=== PATIENT | female | born 1945 | race Caucasian/White ===

== ENCOUNTER 2022-04-23 17:10 | Inpatient (IN) | payer MEDICARE ==
[~2022-04-23 17:10] MED LIST: Iopamidol-370 76% 500 ML 1 ML ONE
[2022-04-23 18:11] LABS: #Eosinphils 0.5 thou/uL (0.0-0.7); #Lymphocytes 1.7 thou/uL (1.20-3.40); #Monocytes 1.4 thou/uL (0.11-0.59); #Neutrophils 8.3 thou/uL (1.40-6.50); %Eosinophils 3.9 % (0.0-10.0); %Lymphocytes 14.5 % (21.0-51.0); %Monocytes 11.7 % (0.0-10.0); %Neutrophils 69.8 % (42.0-75.0); Hemoglobin 11.7 g/dL (12.0-16.0); Mean Corpuscular HGB CONC 33.9 g/dL (32.0-36.0); Mean Corpuscular Volume 91.7 fl (78.0-98.0); Mean Platelet Volume 6.8 fL (7.4-10.4); Platelet Count 495 10x3/uL (130-400); RBC Distribution Width 16.3 % (11.5-14.5); Red Blood Cell (RBC) Count 3.77 mill/uL (4.20-5.40); White Blood Cell (WBC) Count 11.8 10x3/uL (4.8-10.8)
[2022-04-23 18:32] LABS: ALT (SGPT) 16 U/L (8-55); AST (SGOT) 35 U/L (5-34); Albumin 4.1 g/dL (3.4-4.8); Alkaline Phosphatase 61 U/L (40-110); Anion Gap 16 mmol/L (10-20); BUN (Urea Nitrogen) 16 mg/dL (9.8-20.1); Bilirubin, Total 0.8 mg/dL (0.2-1.2); Calc. Creatinine Clearance 0 mL/min (70-130); Calcium 9.8 mg/dL (7.8-10.44); Carbon Dioxide 22 mmol/L (23-31); Chloride 102 mmol/L (98-107); Estimated GFR 50; Globulin 2.6 g/dL (2.4-3.5); Glucose 127 mg/dL (83-110); Potassium 5.1 mmol/L (3.5-5.1); Protein, Total 6.7 g/dL (5.8-8.1); Sodium 135 mmol/L (136-145)
[2022-04-23 21:05] LABS: Bilirubin Negative (Negative); Blood, Urine Negative (Negative); Clarity Clear (Clear); Glucose, Urine (Dipstick) Normal (Negative); Ketone, Urine Negative (Negative); Leukocyte 75 Leu/uL (Negative); Nitrite Negative (Negative); Protein, Urine (Dipstick) Negative (Neg-Trace); RBC/HPF 0-3 HPF (0-3); Specific Gravity, Urine 1.014 (1.002-1.036); Squamous Epithelial 0-3 HPF (0-3); Urobilinogen Normal mg/dL (Less than 2); pH, Urine 6.5 (5.0-9.0)
[2022-04-23] MEDS ORDERED: Azithromycin 250 MG TAB ONE (21:07)
[2022-04-23] MEDS ORDERED: cefTRIAXone\\ROCEPHIN 1 GM VIAL ONE (21:07)
[2022-04-23 21:10] LABS: Bacteria/HPF Rare-Few HPF (None Seen)
[2022-04-23 22:09] LABS: SARS-CoV-2 NAA Rapid Test Not Detected (NotDetected)
[2022-04-23] MEDS ORDERED: Enoxaparin Sodium 80 MG/0.8 ML SYRINGE ONE (22:35)
[2022-04-24] MEDS ORDERED: Ondansetron PF 4 MG/2 ML Vial IVP PRN (03:31)
[2022-04-24] MEDS ORDERED: Acetaminophen 325 MG TAB PO PRN (03:31)
[2022-04-24] MEDS ORDERED: Sodium Chloride 0.9% 1,000 ML IV SCH (04:15)
[2022-04-24 07:28] LABS: #Eosinphils 0.6 thou/uL (0.0-0.7); #Lymphocytes 1.7 thou/uL (1.20-3.40); #Monocytes 1.1 thou/uL (0.11-0.59); #Neutrophils 5.2 thou/uL (1.40-6.50); %Basophils 0.2 % (0.0-1.0); %Eosinophils 6.6 % (0.0-10.0); %Lymphocytes 20.1 % (21.0-51.0); %Neutrophils 60.1 % (42.0-75.0); Hemoglobin 9.9 g/dL (12.0-16.0); Mean Corpuscular Volume 91.1 fl (78.0-98.0); Mean Platelet Volume 6.8 fL (7.4-10.4); Platelet Count 472 10x3/uL (130-400); RBC Distribution Width 16.2 % (11.5-14.5); White Blood Cell (WBC) Count 8.6 10x3/uL (4.8-10.8)
[2022-04-24 07:52] VITALS: BMI 25.7
[2022-04-24 07:52] LABS: Anion Gap 13 mmol/L (10-20); BUN (Urea Nitrogen) 14 mg/dL (9.8-20.1); Calc. Creatinine Clearance 0 mL/min (70-130); Calcium 8.8 mg/dL (7.8-10.44); Carbon Dioxide 21 mmol/L (23-31); Chloride 106 mmol/L (98-107); Estimated GFR 59; Glucose 100 mg/dL (83-110); Potassium 4.3 mmol/L (3.5-5.1); Sodium 136 mmol/L (136-145)
[2022-04-24] MEDS: Apixaban 5 MG TAB PO SCH ×2 (09:27→21:10)
[2022-04-24] MEDS ORDERED: Gabapentin 300 MG CAP PO SCH (11:30)
[2022-04-24 12:02] LABS: Legionella Urinary Ag Negative (Negative); Strep pneumo Urine Ag NEGATIVE (NEGATIVE)
[2022-04-24] MEDS: Gabapentin 300 MG CAP PO SCH ×2 (14:43→21:10)
[2022-04-24] MEDS ORDERED: Valsartan 80 MG TAB PO SCH (21:00)
[2022-04-24] MEDS ORDERED: cefTRIAXone\\ROCEPHIN 1 GM in Sodium Chloride 0.9% 100 ML IVPB SCH (21:00)
[2022-04-24] MEDS ORDERED: Azithromycin 500 MG in Sodium Chloride 0.9% 250 ML 250 ML IVPB SCH (21:00)
[2022-04-24] MEDS: rOPINIRole HCl 0.5 MG TAB PO SCH (21:10)
[2022-04-24] MEDS: Valsartan 80 MG TAB PO SCH (21:10)
[2022-04-25] MEDS ORDERED: Sodium Chloride 0.9% 500 ML IV SCH (00:45)
[2022-04-25 05:13] LABS: #Eosinphils 0.7 thou/uL (0.0-0.7); #Monocytes 1.3 thou/uL (0.11-0.59); #Neutrophils 4.9 thou/uL (1.40-6.50); %Basophils 0.1 % (0.0-1.0); %Eosinophils 7.5 % (0.0-10.0); %Lymphocytes 22.7 % (21.0-51.0); %Monocytes 14.9 % (0.0-10.0); %Neutrophils 54.7 % (42.0-75.0); Hemoglobin 9.6 g/dL (12.0-16.0); Mean Corpuscular HGB CONC 32.5 g/dL (32.0-36.0); Mean Corpuscular Hemoglobin 30.4 pg (27.0-31.0); Mean Corpuscular Volume 93.4 fl (78.0-98.0); Mean Platelet Volume 6.6 fL (7.4-10.4); Platelet Count 511 10x3/uL (130-400); RBC Distribution Width 16.6 % (11.5-14.5); Red Blood Cell (RBC) Count 3.15 mill/uL (4.20-5.40); White Blood Cell (WBC) Count 8.9 10x3/uL (4.8-10.8)
[2022-04-25 05:31] LABS: Anion Gap 12 mmol/L (10-20); BUN (Urea Nitrogen) 13 mg/dL (9.8-20.1); Calc. Creatinine Clearance 54 mL/min (70-130); Calcium 8.5 mg/dL (7.8-10.44); Carbon Dioxide 21 mmol/L (23-31); Chloride 108 mmol/L (98-107); Estimated GFR 56; Glucose 92 mg/dL (83-110); Potassium 4.1 mmol/L (3.5-5.1); Sodium 137 mmol/L (136-145)
[2022-04-25] MEDS: Apixaban 5 MG TAB PO SCH ×2 (08:26→20:16)
[2022-04-25] MEDS: Furosemide 40 MG TAB PO SCH (08:26)
[2022-04-25] MEDS: Spironolactone 25 MG TAB PO SCH (08:26)
[2022-04-25] MEDS: Fenofibrate 48 MG TAB PO SCH (08:27)
[2022-04-25] MEDS: Gabapentin 300 MG CAP PO SCH ×3 (08:28→20:16)
[2022-04-25] MEDS: Valsartan 80 MG TAB PO SCH (08:39)
[2022-04-25] MEDS ORDERED: Valsartan 80 MG TAB PO SCH (11:54)
[2022-04-25] MEDS ORDERED: Methotrexate Sodium 2.5 MG TAB PO SCH (14:00)
[2022-04-25] MEDS: rOPINIRole HCl 0.5 MG TAB PO SCH (20:16)
[2022-04-26 04:50] LABS: #Eosinphils 0.7 thou/uL (0.0-0.7); #Lymphocytes 2.1 thou/uL (1.20-3.40); #Monocytes 1.4 thou/uL (0.11-0.59); #Neutrophils 5.9 thou/uL (1.40-6.50); %Basophils 0.3 % (0.0-1.0); %Eosinophils 7.1 % (0.0-10.0); %Lymphocytes 20.4 % (21.0-51.0); %Monocytes 14.1 % (0.0-10.0); Hemoglobin 9.9 g/dL (12.0-16.0); Mean Corpuscular HGB CONC 32.8 g/dL (32.0-36.0); Mean Corpuscular Hemoglobin 30.3 pg (27.0-31.0); Mean Corpuscular Volume 92.3 fl (78.0-98.0); Mean Platelet Volume 6.7 fL (7.4-10.4); Platelet Count 553 10x3/uL (130-400); RBC Distribution Width 16.3 % (11.5-14.5); Red Blood Cell (RBC) Count 3.25 mill/uL (4.20-5.40); White Blood Cell (WBC) Count 10.2 10x3/uL (4.8-10.8)
[2022-04-26 05:32] LABS: Chloride 103 mmol/L (98-107); Potassium 4.3 mmol/L (3.5-5.1); Sodium 134 mmol/L (136-145)
[2022-04-26 05:33] LABS: Calcium 8.7 mg/dL (7.8-10.44); Glucose 87 mg/dL (83-110)
[2022-04-26 05:34] LABS: Anion Gap 15 mmol/L (10-20); Carbon Dioxide 20 mmol/L (23-31)
[2022-04-26 05:36] LABS: Calc. Creatinine Clearance 47 mL/min (70-130); Estimated GFR 47
[2022-04-26 05:37] LABS: BUN (Urea Nitrogen) 18 mg/dL (9.8-20.1)
[2022-04-26] MEDS: Gabapentin 300 MG CAP PO SCH (07:42)
[2022-04-26] MEDS: Fenofibrate 48 MG TAB PO SCH (07:42)
[2022-04-26] MEDS: Spironolactone 25 MG TAB PO SCH (07:43)
[2022-04-26] MEDS: Furosemide 40 MG TAB PO SCH (07:44)
[2022-04-26] MEDS: Apixaban 5 MG TAB PO SCH (07:44)
[2022-04-26] MEDS ORDERED: Metoprolol Tartrate 25 MG TAB PO SCH (09:00)
[2022-04-26] MEDS ORDERED: Furosemide 20 MG/2 ML VIAL SLOW IVP SCH (09:15)
[2022-04-26 12:42] VITALS: BP 88/53; TEMP 98
[2022-05-01] MEDS ORDERED: cloNIDine 0.3mg/24 Hour PATCH TD SCH ×2 (09:00)
[2022-05-01] MEDS ORDERED: Apixaban 5 MG TAB PO SCH (21:00)
== END 2022-04-26 14:47 | disposition home health service (06) | DRG 175 ==
LOC: ERS 17:10 → ERHOLD 22:47 → 2SW 04-24 07:48 → OBSVTOIN 04-24 15:15
PROVIDERS: ADMIT Internal Medicine; ATTEND Family Medicine
DX: I26.99 Other pulmonary embolism without acute cor pulmonale (principal); J18.9 Pneumonia, unspecified organism; J96.01 Acute respiratory failure with hypoxia; I82.432 Acute embolism and thrombosis of left popliteal vein; I82.442 Acute embolism and thrombosis of left tibial vein; N17.9 Acute kidney failure, unspecified; J81.1 Chronic pulmonary edema; I10 Essential (primary) hypertension; M06.9 Rheumatoid arthritis, unspecified; G62.9 Polyneuropathy, unspecified; Z96.653 Presence of artificial knee joint, bilateral; Z20.822 Contact with and (suspected) exposure to COVID-19; R91.1 Solitary pulmonary nodule; I48.0 Paroxysmal atrial fibrillation; Z79.01 Long term (current) use of anticoagulants; Z79.899 Other long term (current) drug therapy
CPT/HCPCS: 36415; 71045; 71275; 80048; 80053; 81003; 81015; 83605; 83880; 84484; 85025; 87040; 87449; 87633; 87899; 93005; 93306; 93970; 96372; 96374; J0456; J0696; J1650; J1940; J3490; J7030; J7050; J8610; Q9967; U0003; U0005

== ENCOUNTER 2022-06-25 07:13 | Inpatient (IN) | payer MEDICARE ==
[2022-06-25 08:18] LABS: #Eosinphils 0.7 thou/uL (0.0-0.7); #Lymphocytes 1.2 thou/uL (1.20-3.40); #Monocytes 0.6 thou/uL (0.11-0.59); #Neutrophils 2.4 thou/uL (1.40-6.50); %Basophils 0.3 % (0.0-1.0); %Eosinophils 13.5 % (0.0-10.0); %Monocytes 12.7 % (0.0-10.0); %Neutrophils 48.5 % (42.0-75.0); Mean Corpuscular Hemoglobin 32.5 pg (27.0-31.0); Mean Corpuscular Volume 98.3 fl (78.0-98.0); Mean Platelet Volume 6.1 fL (7.4-10.4); Platelet Count 326 10x3/uL (130-400); RBC Distribution Width 18.9 % (11.5-14.5); Red Blood Cell (RBC) Count 2.46 mill/uL (4.20-5.40); White Blood Cell (WBC) Count 4.9 10x3/uL (4.8-10.8)
[2022-06-25] MEDS ORDERED: Iopamidol-370 76% 500 ML 1 ML ONE (08:35)
[2022-06-25 08:38] LABS: ALT (SGPT) 23 U/L (8-55); AST (SGOT) 37 U/L (5-34); Albumin 3.6 g/dL (3.4-4.8); Alkaline Phosphatase 51 U/L (40-110); Anion Gap 12 mmol/L (10-20); BUN (Urea Nitrogen) 9 mg/dL (9.8-20.1); Bilirubin, Total 0.6 mg/dL (0.2-1.2); Calc. Creatinine Clearance 0 mL/min (70-130); Calcium 8.8 mg/dL (7.8-10.44); Carbon Dioxide 18 mmol/L (23-31); Chloride 114 mmol/L (98-107); Estimated GFR 69; Globulin 2.2 g/dL (2.4-3.5); Glucose 82 mg/dL (83-110); Potassium 3.4 mmol/L (3.5-5.1); Protein, Total 5.8 g/dL (5.8-8.1); Sodium 141 mmol/L (136-145)
[2022-06-25] MEDS ORDERED: cefTRIAXone\\ROCEPHIN 2 GM VIAL ONE (10:56)
[2022-06-25] MEDS ORDERED: Ondansetron PF 4 MG/2 ML Vial IVP PRN (11:23)
[2022-06-25] MEDS ORDERED: Senokot S 8.6-50 MG TAB PO PRN (11:23)
[2022-06-25] MEDS ORDERED: Ondansetron ODT 4 MG TAB PO PRN (11:23)
[2022-06-25] MEDS ORDERED: Calcium Carbonate 500 MG ChewTAB PO PRN (11:23)
[2022-06-25] MEDS ORDERED: Azithromycin 500 MG VIAL ONE (11:40)
[2022-06-25] MEDS ORDERED: Morphine 4 MG/ML VIAL ONE (11:49)
[2022-06-25] MEDS ORDERED: Ondansetron PF 4 MG/2 ML Vial ONE (11:49)
[2022-06-25] MEDS ORDERED: Furosemide 40 MG/4 ML VIAL ONE (13:42)
[2022-06-25] MEDS: Furosemide 40 MG/4 ML VIAL SLOW IVP SCH (13:54)
[2022-06-25] MEDS: Gabapentin 300 MG CAP PO SCH ×2 (15:25→21:24)
[2022-06-25] MEDS ORDERED: Potassium Chloride 20 MEQ TAB PO SCH (16:00)
[2022-06-25 17:04] LABS: SARS-CoV-2 NAA Rapid Test Not Detected (NotDetected)
[2022-06-25] MEDS ORDERED: rOPINIRole HCl 0.5 MG TAB PO SCH (21:00)
[2022-06-25] MEDS: Acetaminophen 325 MG TAB PO PRN (21:24)
[2022-06-25] MEDS: Apixaban 5 MG TAB PO SCH (21:24)
[2022-06-25] MEDS: Metoprolol Tartrate 25 MG TAB PO SCH (21:25)
[2022-06-25] MEDS ORDERED: Fenofibrate 48 MG TAB PO SCH (22:00)
[2022-06-26] MEDS: traMADol HCl 50 MG TAB PO PRN ×2 (03:13→14:02)
[2022-06-26 04:57] LABS: Hemoglobin 7.2 g/dL (12.0-16.0); Mean Corpuscular HGB CONC 32.6 g/dL (32.0-36.0); Mean Corpuscular Hemoglobin 32.2 pg (27.0-31.0); Mean Corpuscular Volume 98.6 fl (78.0-98.0); Mean Platelet Volume 6.6 fL (7.4-10.4); Platelet Count 286 10x3/uL (130-400); RBC Distribution Width 18.5 % (11.5-14.5); Red Blood Cell (RBC) Count 2.23 mill/uL (4.20-5.40); White Blood Cell (WBC) Count 5.6 10x3/uL (4.8-10.8)
[2022-06-26 05:21] LABS: ALT (SGPT) 21 U/L (8-55); AST (SGOT) 35 U/L (5-34); Albumin 3.4 g/dL (3.4-4.8); Alkaline Phosphatase 52 U/L (40-110); Anion Gap 10 mmol/L (10-20); BUN (Urea Nitrogen) 10 mg/dL (9.8-20.1); Bilirubin, Total 0.5 mg/dL (0.2-1.2); Calc. Creatinine Clearance 51 mL/min (70-130); Calcium 8.6 mg/dL (7.8-10.44); Carbon Dioxide 22 mmol/L (23-31); Chloride 110 mmol/L (98-107); Estimated GFR 53; Globulin 2.1 g/dL (2.4-3.5); Glucose 93 mg/dL (83-110); Magnesium 1.7 mg/dL (1.6-2.6); Potassium 3.3 mmol/L (3.5-5.1); Protein, Total 5.5 g/dL (5.8-8.1); Sodium 139 mmol/L (136-145)
[2022-06-26 05:24] LABS: Eosinophils 18 % (0-10); Lymphocytes 22 % (21-51); MDiff Complete? YES; Monocytes 11 % (0-10); Neutrophil 49 % (42-75)
[2022-06-26] MEDS: Furosemide 40 MG/4 ML VIAL SLOW IVP SCH ×2 (05:44→14:02)
[2022-06-26] MEDS: Acetaminophen 325 MG TAB PO PRN ×2 (05:44→20:14)
[2022-06-26] MEDS ORDERED: Fenofibrate 48 MG TAB PO SCH (09:00)
[2022-06-26] MEDS: Spironolactone 25 MG TAB PO SCH (09:22)
[2022-06-26] MEDS: Gabapentin 300 MG CAP PO SCH ×3 (09:22→20:15)
[2022-06-26] MEDS: Metoprolol Tartrate 25 MG TAB PO SCH ×3 (09:23→22:34)
[2022-06-26] MEDS: Apixaban 5 MG TAB PO SCH (09:23)
[2022-06-26] MEDS: Potassium Chloride 20 MEQ TAB PO SCH ×2 (11:08→14:03)
[2022-06-26] MEDS: rOPINIRole HCl 0.5 MG TAB PO SCH ×2 (14:03→20:15)
[2022-06-26 14:10] LABS: Hemoglobin 8.2 g/dL (12.0-16.0)
[2022-06-26] MEDS ORDERED: Pantoprazole 40 MG VIAL IVP SCH (14:15)
[2022-06-26] MEDS: Pantoprazole 40 MG VIAL IVP SCH (17:01)
[2022-06-26] MEDS: Fenofibrate 48 MG TAB PO SCH (20:15)
[2022-06-26] MEDS ORDERED: Magnesium 2 GM/50 ML(in water) 2 GM in Premix Bag 1 BAG IVPB SCH (22:30)
[2022-06-27] MEDS: traMADol HCl 50 MG TAB PO PRN ×3 (04:04→23:46)
[2022-06-27 05:02] LABS: #Eosinphils 0.8 thou/uL (0.0-0.7); #Lymphocytes 1.9 thou/uL (1.20-3.40); #Monocytes 0.4 thou/uL (0.11-0.59); #Neutrophils 3.8 thou/uL (1.40-6.50); %Basophils 0.2 % (0.0-1.0); %Lymphocytes 27.1 % (21.0-51.0); %Monocytes 5.7 % (0.0-10.0); %Neutrophils 55.1 % (42.0-75.0); Hemoglobin 8.1 g/dL (12.0-16.0); Mean Corpuscular HGB CONC 32.8 g/dL (32.0-36.0); Mean Corpuscular Hemoglobin 32.2 pg (27.0-31.0); Mean Corpuscular Volume 98.3 fl (78.0-98.0); Mean Platelet Volume 6.9 fL (7.4-10.4); Platelet Count 351 10x3/uL (130-400); RBC Distribution Width 18.6 % (11.5-14.5); Red Blood Cell (RBC) Count 2.51 mill/uL (4.20-5.40)
[2022-06-27 05:22] LABS: ALT (SGPT) 46 U/L (8-55); AST (SGOT) 91 U/L (5-34); Albumin 3.6 g/dL (3.4-4.8); Alkaline Phosphatase 53 U/L (40-110); Anion Gap 14 mmol/L (10-20); BUN (Urea Nitrogen) 11 mg/dL (9.8-20.1); Bilirubin, Total 0.5 mg/dL (0.2-1.2); Calc. Creatinine Clearance 54 mL/min (70-130); Calcium 9.2 mg/dL (7.8-10.44); Carbon Dioxide 24 mmol/L (23-31); Chloride 105 mmol/L (98-107); Estimated GFR 56; Globulin 2.4 g/dL (2.4-3.5); Glucose 86 mg/dL (83-110); Magnesium 2.4 mg/dL (1.6-2.6); Sodium 139 mmol/L (136-145)
[2022-06-27] MEDS: Furosemide 40 MG/4 ML VIAL SLOW IVP SCH ×2 (06:13→14:29)
[2022-06-27] MEDS: Spironolactone 25 MG TAB PO SCH (09:03)
[2022-06-27] MEDS: Gabapentin 300 MG CAP PO SCH ×3 (09:03→20:10)
[2022-06-27] MEDS: Metoprolol Tartrate 25 MG TAB PO SCH ×2 (09:03→20:37)
[2022-06-27] MEDS: Pantoprazole 40 MG VIAL IVP SCH (09:06)
[2022-06-27] MEDS: rOPINIRole HCl 0.5 MG TAB PO SCH ×2 (14:35→20:11)
[2022-06-27] MEDS: Fenofibrate 48 MG TAB PO SCH (20:10)
[2022-06-27] MEDS: Acetaminophen 325 MG TAB PO PRN (20:10)
[2022-06-28 05:16] LABS: Iron 15 ug/dL (50-170); Iron Binding Capacity, Total 359 mcg/dL (265-497)
[2022-06-28 05:39] LABS: Ferritin 51.1 ng/mL (10-291)
[2022-06-28] MEDS: Furosemide 40 MG/4 ML VIAL SLOW IVP SCH ×2 (06:12→14:15)
[2022-06-28] MEDS: Acetaminophen 325 MG TAB PO PRN ×2 (06:12→20:18)
[2022-06-28] MEDS ORDERED: Milk Of Magnesia 30 ML UDCUP PO PRN (09:30)
[2022-06-28] MEDS ORDERED: Polyethylene Glycol 3350 17 GM Packet PO SCH (09:45)
[2022-06-28] MEDS: Spironolactone 25 MG TAB PO SCH (10:35)
[2022-06-28] MEDS: Gabapentin 300 MG CAP PO SCH ×3 (10:35→20:12)
[2022-06-28] MEDS: Metoprolol Tartrate 25 MG TAB PO SCH (10:37)
[2022-06-28] MEDS: rOPINIRole HCl 0.5 MG TAB PO SCH ×2 (14:14→20:12)
[2022-06-28] MEDS: traMADol HCl 50 MG TAB PO PRN (18:07)
[2022-06-28] MEDS ORDERED: CEFEPIME IVPB SCH (19:15)
[2022-06-28] MEDS: Fenofibrate 48 MG TAB PO SCH (20:12)
[2022-06-28] MEDS: Cefepime 1 GM in Sodium Chloride 0.9% 100 ML IVPB SCH (20:13)
[2022-06-28] MEDS: Senokot S 8.6-50 MG TAB PO SCH (20:13)
[2022-06-28] MEDS ORDERED: Vancomycin 1.5 GRAM/300 ML BAG 1.5 GM in Premix Bag 1 BAG IVPB SCH (21:00)
[2022-06-29 04:42] LABS: #Eosinphils 0.8 thou/uL (0.0-0.7); #Lymphocytes 1.7 thou/uL (1.20-3.40); #Monocytes 0.4 thou/uL (0.11-0.59); #Neutrophils 3.4 thou/uL (1.40-6.50); %Basophils 0.7 % (0.0-1.0); %Eosinophils 12.6 % (0.0-10.0); %Lymphocytes 26.7 % (21.0-51.0); %Monocytes 6.5 % (0.0-10.0); %Neutrophils 53.5 % (42.0-75.0); Mean Corpuscular HGB CONC 33.5 g/dL (32.0-36.0); Mean Corpuscular Hemoglobin 32.9 pg (27.0-31.0); Mean Corpuscular Volume 98.4 fl (78.0-98.0); Mean Platelet Volume 6.6 fL (7.4-10.4); Platelet Count 508 10x3/uL (130-400); RBC Distribution Width 18.8 % (11.5-14.5); Red Blood Cell (RBC) Count 2.43 mill/uL (4.20-5.40); White Blood Cell (WBC) Count 6.4 10x3/uL (4.8-10.8)
[2022-06-29 05:07] LABS: Anion Gap 13 mmol/L (10-20); BUN (Urea Nitrogen) 24 mg/dL (9.8-20.1); Calc. Creatinine Clearance 42 mL/min (70-130); Calcium 8.9 mg/dL (7.8-10.44); Carbon Dioxide 26 mmol/L (23-31); Chloride 101 mmol/L (98-107); Estimated GFR 43; Glucose 85 mg/dL (83-110); Magnesium 2.2 mg/dL (1.6-2.6); Potassium 3.8 mmol/L (3.5-5.1); Sodium 136 mmol/L (136-145)
[2022-06-29] MEDS: Furosemide 40 MG/4 ML VIAL SLOW IVP SCH (06:35)
[2022-06-29] MEDS: Gabapentin 300 MG CAP PO SCH ×3 (10:14→21:16)
[2022-06-29] MEDS: Cefepime 1 GM in Sodium Chloride 0.9% 100 ML IVPB SCH ×2 (10:15→21:11)
[2022-06-29] MEDS: Senokot S 8.6-50 MG TAB PO SCH ×2 (10:15→21:15)
[2022-06-29] MEDS: Spironolactone 25 MG TAB PO SCH (10:15)
[2022-06-29] MEDS: Azithromycin 250 MG TAB PO SCH (10:15)
[2022-06-29] MEDS: Polyethylene Glycol 3350 17 GM Packet PO SCH (10:15)
[2022-06-29 14:58] VITALS: BMI 24.9
[2022-06-29] MEDS: rOPINIRole HCl 0.5 MG TAB PO SCH ×2 (15:03→21:13)
[2022-06-29] MEDS: traMADol HCl 50 MG TAB PO PRN (15:07)
[2022-06-29] MEDS ORDERED: VANCOMYCIN 1.25 GM/250 ML BAG 1.25 GM in Premix Bag 1 BAG IVPB SCH (21:00)
[2022-06-29] MEDS: Fenofibrate 48 MG TAB PO SCH (21:11)
[2022-06-29] MEDS: Metoprolol Tartrate 25 MG TAB PO SCH (21:12)
[2022-06-30] MEDS: traMADol HCl 50 MG TAB PO PRN ×3 (04:06→23:43)
[2022-06-30 05:08] LABS: #Eosinphils 0.7 thou/uL (0.0-0.7); #Lymphocytes 1.8 thou/uL (1.20-3.40); #Monocytes 0.5 thou/uL (0.11-0.59); #Neutrophils 3.4 thou/uL (1.40-6.50); %Basophils 0.6 % (0.0-1.0); %Eosinophils 11.1 % (0.0-10.0); %Lymphocytes 27.8 % (21.0-51.0); %Monocytes 8.1 % (0.0-10.0); %Neutrophils 52.5 % (42.0-75.0); Hemoglobin 8.8 g/dL (12.0-16.0); Mean Corpuscular HGB CONC 32.8 g/dL (32.0-36.0); Mean Corpuscular Hemoglobin 32.3 pg (27.0-31.0); Mean Corpuscular Volume 98.3 fl (78.0-98.0); Mean Platelet Volume 7.1 fL (7.4-10.4); Platelet Count 465 10x3/uL (130-400); RBC Distribution Width 19.1 % (11.5-14.5); Red Blood Cell (RBC) Count 2.72 mill/uL (4.20-5.40); White Blood Cell (WBC) Count 6.5 10x3/uL (4.8-10.8)
[2022-06-30 05:31] LABS: Anion Gap 16 mmol/L (10-20); BUN (Urea Nitrogen) 20 mg/dL (9.8-20.1); Calc. Creatinine Clearance 45 mL/min (70-130); Calcium 9.5 mg/dL (7.8-10.44); Carbon Dioxide 23 mmol/L (23-31); Chloride 100 mmol/L (98-107); Estimated GFR 47; Glucose 84 mg/dL (83-110); Magnesium 2.5 mg/dL (1.6-2.6); Potassium 4.3 mmol/L (3.5-5.1); Sodium 135 mmol/L (136-145)
[2022-06-30] MEDS: Furosemide 40 MG TAB PO SCH (07:17)
[2022-06-30] MEDS: Gabapentin 300 MG CAP PO SCH ×3 (07:47→20:53)
[2022-06-30] MEDS: Acetaminophen 325 MG TAB PO PRN (07:48)
[2022-06-30] MEDS: Cefepime 1 GM in Sodium Chloride 0.9% 100 ML IVPB SCH ×2 (07:50→20:47)
[2022-06-30] MEDS: Senokot S 8.6-50 MG TAB PO SCH ×2 (07:50→20:49)
[2022-06-30] MEDS: Azithromycin 250 MG TAB PO SCH (07:50)
[2022-06-30] MEDS: Polyethylene Glycol 3350 17 GM Packet PO SCH ×2 (07:51→07:52)
[2022-06-30] MEDS: Metoprolol Tartrate 25 MG TAB PO SCH ×2 (08:03→20:50)
[2022-06-30] MEDS: Spironolactone 25 MG TAB PO SCH (08:03)
[2022-06-30 12:27] LABS: Legionella Urinary Ag Negative (Negative); Strep pneumo Urine Ag NEGATIVE (NEGATIVE)
[2022-06-30] MEDS: rOPINIRole HCl 0.5 MG TAB PO SCH ×2 (16:49→20:48)
[2022-06-30] MEDS: Fenofibrate 48 MG TAB PO SCH (20:48)
[2022-06-30] MEDS: Apixaban 5 MG TAB PO SCH (20:53)
[2022-06-30 20:59] LABS: Vancomycin, Trough 20.2 ug/mL
[2022-07-01 04:59] LABS: #Eosinphils 0.8 thou/uL (0.0-0.7); #Lymphocytes 1.4 thou/uL (1.20-3.40); #Monocytes 0.8 thou/uL (0.11-0.59); #Neutrophils 3.5 thou/uL (1.40-6.50); %Basophils 0.6 % (0.0-1.0); %Eosinophils 11.7 % (0.0-10.0); %Lymphocytes 22.1 % (21.0-51.0); %Monocytes 12.1 % (0.0-10.0); %Neutrophils 53.5 % (42.0-75.0); Hemoglobin 7.6 g/dL (12.0-16.0); Mean Corpuscular HGB CONC 33.8 g/dL (32.0-36.0); Mean Corpuscular Hemoglobin 32.9 pg (27.0-31.0); Mean Corpuscular Volume 97.3 fl (78.0-98.0); Mean Platelet Volume 6.7 fL (7.4-10.4); Platelet Count 419 10x3/uL (130-400); RBC Distribution Width 18.7 % (11.5-14.5); White Blood Cell (WBC) Count 6.5 10x3/uL (4.8-10.8)
[2022-07-01 05:22] LABS: Anion Gap 12 mmol/L (10-20); BUN (Urea Nitrogen) 25 mg/dL (9.8-20.1); Calc. Creatinine Clearance 45 mL/min (70-130); Calcium 9.4 mg/dL (7.8-10.44); Carbon Dioxide 25 mmol/L (23-31); Chloride 102 mmol/L (98-107); Estimated GFR 48; Glucose 91 mg/dL (83-110); Sodium 135 mmol/L (136-145)
[2022-07-01] MEDS: Furosemide 40 MG TAB PO SCH (07:12)
[2022-07-01 08:58] VITALS: TEMP 98.2
[2022-07-01] MEDS: Cefepime 1 GM in Sodium Chloride 0.9% 100 ML IVPB SCH (09:06)
[2022-07-01] MEDS: Azithromycin 250 MG TAB PO SCH (09:07)
[2022-07-01] MEDS: Senokot S 8.6-50 MG TAB PO SCH (09:07)
[2022-07-01] MEDS: Gabapentin 300 MG CAP PO SCH (09:08)
[2022-07-01] MEDS: traMADol HCl 50 MG TAB PO PRN (09:08)
[2022-07-01] MEDS: Apixaban 5 MG TAB PO SCH (09:08)
[2022-07-01] MEDS: Polyethylene Glycol 3350 17 GM Packet PO SCH (09:09)
[2022-07-01] MEDS: Metoprolol Tartrate 25 MG TAB PO SCH (09:10)
[2022-07-01] MEDS: Spironolactone 25 MG TAB PO SCH (09:10)
[2022-07-01 12:14] VITALS: BP 103/51
[2022-07-02] MEDS ORDERED: Methotrexate Sodium 2.5 MG TAB PO SCH (09:00)
== END 2022-07-01 14:00 | disposition home or self-care (01) | DRG 193 ==
LOC: ERS 07:13 → SUATTDRO 07:13 → ERHOLD 11:29 → 2NO 16:44 → OBSVTOIN 06-26 16:37
PROVIDERS: ADMIT Internal Medicine; ATTEND Family Medicine
DX: J15.9 Unspecified bacterial pneumonia (principal); I50.33 Acute on chronic diastolic (congestive) heart failure; N17.9 Acute kidney failure, unspecified; I11.0 Hypertensive heart disease with heart failure; M06.9 Rheumatoid arthritis, unspecified; Z20.822 Contact with and (suspected) exposure to COVID-19; I48.0 Paroxysmal atrial fibrillation; E87.6 Hypokalemia; G62.9 Polyneuropathy, unspecified; D50.9 Iron deficiency anemia, unspecified; R91.1 Solitary pulmonary nodule; Z96.653 Presence of artificial knee joint, bilateral; Z86.718 Personal history of other venous thrombosis and embolism; Z86.711 Personal history of pulmonary embolism; Z79.01 Long term (current) use of anticoagulants; Z79.899 Other long term (current) drug therapy
CPT/HCPCS: 36415; 71045; 71275; 80048; 80053; 80202; 82274; 82607; 82728; 83540; 83550; 83735; 83880; 84145; 84484; 85025; 86850; 86900; 86901; 87040; 87081; 87449; 87899; 93005; 93306; 93798; 96365; 96367; 96375; 96376; C9113; G0378; J0456; J0692; J0696; J1940; J2270; J2405; J3370; J3475; J3490; Q9967; U0002